=== PATIENT | female | born 1950 | race African-American/Black ===

== ENCOUNTER → 2024-06-13 17:11 | Outpatient (REF) | payer OTHER, SELFPAY | LOC: HWWDC 17:11 | PROVIDERS: ATTENDING PHYSICIAN Family Medicine | DX: Z12.31 Encounter for screening mammogram for malignant neoplasm of breast (principal) | CPT/HCPCS: 77063; 77067 ==

== ENCOUNTER → 2025-06-16 10:20 | Outpatient (REF) | payer OTHER, SELFPAY | LOC: HWWDC 10:20 | PROVIDERS: ATTENDING PHYSICIAN Family Medicine | DX: Z12.31 Encounter for screening mammogram for malignant neoplasm of breast (principal) | CPT/HCPCS: 77063; 77067 ==